=== PATIENT | male | born 1950 | race Caucasian/White ===

== ENCOUNTER → 2016-09-12 | Outpatient (CLI) | payer MEDICARE, BC ==
[~2016-09-12] VITALS: Ht 167.6 cm; Wt 104.3 kg
[~2016-09-12] MED LIST: ASPI81TA85 PO; ATOR1TAB18 PO; LISI-542 PO; NS 1,000 ML IV SCH; PROPOFOL 200 MG/20 ML VIAL As Ordered ONE
--- NOTE | 2016-09-12 11:48 | ROOR ---
Patient Name: Jimenez Garcia Procedure Date: 09/12/2016 11:25 AM Date of : 1950 Age: 66 Room: [facility] Gender: Male Note Status: Finalized Procedure: Colonoscopy to Cecum Indications: Screening for colorectal malignant neoplasm, Last colonoscopy: 2005 Providers: Maycol Jaramillo MD Referring MD: Sky Mosqueda MD Requesting Provider: Medicines: Monitored Anesthesia Care Complications: No immediate complications. Procedure: Pre-Anesthesia Assessment: - The heart rate, respiratory rate, oxygen saturations, blood pressure, adequacy of pulmonary ventilation, and response to care were monitored throughout the procedure. The Colonoscope was introduced through the anus and advanced to the cecum, identified by appendiceal orifice and ileocecal valve. The colonoscopy was performed without difficulty. The patient tolerated the procedure well. The quality of the bowel preparation was excellent. Findings: The perianal and digital rectal examinations were normal. Non-bleeding internal hemorrhoids were found during retroflexion. The hemorrhoids were small and Grade I (internal hemorrhoids that do not prolapse). No other significant abnormalities were identified in a careful examination of the remainder of the colon. The exam was otherwise without abnormality on direct and retroflexion views. Impression: - Non-bleeding internal hemorrhoids. - The examination was otherwise normal on direct and retroflexion views. - No specimens collected. - The exam was otherwise normal to the cecum. Recommendation: - Patient has a contact number available for emergencies. The signs and symptoms of potential delayed complications were discussed with the patient. Return to normal activities tomorrow. Written discharge instructions were provided to the patient. - High fiber diet. - Discharge patient to home. - Continue present medications. - Repeat colonoscopy in 10 years for screening purposes. - Return to referring physician. - The findings and recommendations were discussed with the patient's family. Maycol Jaramillo MD Maycol Jaramillo MD 09/12/2016 11:48:24 AM This report has been signed electronically. Number of Addenda: 0 Note Initiated On: 09/12/2016 11:25 AM Estimated Blood Loss: Estimated blood loss: none.
[2016-09-12 12:15] VITALS: BP 118/57
== END | disposition home or self-care (01) ==
LOC: M OPP 10:03
PROVIDERS: ATTEND Internal Medicine Gastroenterology
DX: Z12.11 Encounter for screening for malignant neoplasm of colon (principal); K64.0 First degree hemorrhoids; E78.5 Hyperlipidemia, unspecified; I10 Essential (primary) hypertension; I25.10 Atherosclerotic heart disease of native coronary artery without angina pectoris; I25.2 Old myocardial infarction; R07.89 Other chest pain; Z95.5 Presence of coronary angioplasty implant and graft; Z79.82 Long term (current) use of aspirin; Z79.899 Other long term (current) drug therapy; Z87.891 Personal history of nicotine dependence
CPT/HCPCS: 99156; 99157; G0121

== ENCOUNTER → 2016-11-16 | Outpatient (REF) | payer MEDICARE, BC ==
[~2016-11-16] MED LIST changes: -NS 1,000 ML IV SCH; -PROPOFOL 200 MG/20 ML VIAL As Ordered ONE
[2016-11-16 13:34] LABS: ALBUMIN 4.2 GM/DL (3.2-5.2); ALKALINE PHOSPHATASE 132 U/L (45-117); ALT/SGPT 31 U/L (12-78); ANION GAP 6 MEQ/L (8-16); AST/SGOT 19 U/L (15-37); BILIRUBIN,TOTAL 0.5 MG/DL (0.2-1.0); BLOOD UREA NITROGEN 19 MG/DL (7-18); CALCIUM LEVEL 8.8 MG/DL (8.8-10.2); CARBON DIOXIDE LEVEL 28 MEQ/L (21-32); CHLORIDE LEVEL 105 MEQ/L (98-107); CHOLESTEROL LEVEL 140 MG/DL (<200); CREATININE FOR GFR 0.92 MG/DL (0.70-1.30); GLOMERULAR FILTRATION RATE > 60.0 (>49); GLUCOSE, FASTING 105 MG/DL (80-110); POTASSIUM SERUM 4.1 MEQ/L (3.5-5.1); SODIUM LEVEL 139 MEQ/L (136-145); TRIGLYCERIDES LEVEL 75 MG/DL (<150)
== END ==
LOC: M SFHCCLAY 08:04
PROVIDERS: ATTEND Family Medicine
DX: I25.10 Atherosclerotic heart disease of native coronary artery without angina pectoris (principal); E78.2 Mixed hyperlipidemia; Z12.5 Encounter for screening for malignant neoplasm of prostate
CPT/HCPCS: 80053; 80061; G0103

== ENCOUNTER → 2017-02-20 | Outpatient (REF) | payer MEDICARE, BC ==
[~2017-02-20] MED LIST changes: -ATOR1TAB18 PO; +ATOR80TA59 PO
[2017-02-20 12:41] LABS: BASO % 0.5 % (0.0-1.0); EOS # 0.3 10^3/uL (0.0-0.50); EOS % 4.2 % (0.0-3.0); IMMATURE GRANULOCYTE % 0.2 % (0-0); LYMPH # 2.1 10^3/uL (1.5-4.5); LYMPH % 32.6 % (24.0-44.0); MEAN CORPUSCULAR HEMOGLOBIN 30.8 pg (27.0-33.0); MEAN CORPUSCULAR HGB CONC 33.1 g/dl (32.0-36.5); MONO # 0.5 10^3/uL (0.0-0.8); NEUTROPHILS # 3.5 10^3/uL (1.8-7.7); NEUTROPHILS % 54.5 % (36.0-66.0); PLATELET COUNT, AUTOMATED 341 10^3/uL (150-450); RED CELL DISTRIBUTION WIDTH 12.8 % (11.5-14.5); WHITE BLOOD COUNT 6.5 10^3/uL (4.0-10.0)
[2017-02-20 13:15] LABS: ALBUMIN 3.8 GM/DL (3.2-5.2); PERCENT SATURATION 35.8 % (19.7-50.0)
== END ==
LOC: M LABDRAWC 11:26
PROVIDERS: ATTEND Orthopaedic Surgery
DX: Z01.818 Encounter for other preprocedural examination (principal); M16.12 Unilateral primary osteoarthritis, left hip; D63.8 Anemia in other chronic diseases classified elsewhere

== ENCOUNTER → 2017-02-26 | Outpatient (CLI) | payer MEDICARE, BC ==
--- NOTE | 2017-02-26 08:19 | REP ---
CT of the chest without IV contrast for lung nodules: Comparison is the chest CT dated 04/09/2015. Following lung nodules are identified on the study today: Image 59, right lower lobe, 7 mm, not significantly changed. Image 63, right lower lobe, 7 mm, not significantly changed. Image 63, left lower lobe, 6 mm, not significantly changed. Image 67, right lower lobe, 6 mm, not significantly changed. Image 67, left lower lobe, 6 mm, not significantly changed. The ascending thoracic aorta is dilated measuring 4.6 x 4.6 cm This measured 4.6 cm previously. In the absence of IV contrast the study is insensitive for dissection. There are no acute infiltrates or effusions. There is no mediastinal adenopathy. There is no axillary adenopathy. The study is insensitive for hilar adenopathy in the absence of IV contrast. Cardiac size is normal. There is no pericardial effusion. The visualized upper abdominal contents are unremarkable. Impression: Multiple lung nodules as enumerated in the body of the report. None of these nodules are significantly changed from the comparison study of 04/09/2015. Dilatation of the ascending thoracic aorta is again identified, not significantly changed. Signed by Richi Mulelr MD 02/26/2017 08:11 A
== END ==
LOC: M RAD 07:21
PROVIDERS: ATTEND Internal Medicine Cardiovascular Disease
DX: R91.1 Solitary pulmonary nodule (principal)

== ENCOUNTER → 2017-05-23 | Outpatient (REF) | payer MEDICARE, BC ==
[2017-05-23 11:53] LABS: ALBUMIN/GLOBULIN RATIO 1.33 (1.00-1.93); ALKALINE PHOSPHATASE 134 U/L (45-117); ALT/SGPT 30 U/L (12-78); ANION GAP 7 MEQ/L (8-16); AST/SGOT 19 U/L (7-37); BILIRUBIN,TOTAL 0.5 MG/DL (0.2-1.0); BLOOD UREA NITROGEN 19 MG/DL (7-18); CARBON DIOXIDE LEVEL 28 MEQ/L (21-32); CHLORIDE LEVEL 106 MEQ/L (98-107); CREATININE FOR GFR 0.82 MG/DL (0.70-1.30); GLOMERULAR FILTRATION RATE > 60.0 (>49); GLUCOSE, FASTING 112 MG/DL (80-110); POTASSIUM SERUM 4.3 MEQ/L (3.5-5.1); SODIUM LEVEL 141 MEQ/L (136-145)
== END ==
LOC: M SFHCCLAY 07:46
PROVIDERS: ATTEND Family Medicine
DX: I25.10 Atherosclerotic heart disease of native coronary artery without angina pectoris (principal); E78.2 Mixed hyperlipidemia

== ENCOUNTER → 2017-11-20 | Outpatient (REF) | payer MEDICARE, BC ==
[2017-11-20 12:36] LABS: ESTIMATED AVERAGE GLUCOSE 117 MG/DL (60-110); HEMOGLOBIN A1c 5.7 %
[2017-11-20 12:51] LABS: ALBUMIN/GLOBULIN RATIO 1.33 (1.00-1.93); ALKALINE PHOSPHATASE 130 U/L (45-117); ALT/SGPT 37 U/L (12-78); ANION GAP 9 MEQ/L (8-16); AST/SGOT 20 U/L (7-37); BILIRUBIN,TOTAL 0.6 MG/DL (0.2-1.0); BLOOD UREA NITROGEN 18 MG/DL (7-18); CALCIUM LEVEL 8.8 MG/DL (8.8-10.2); CARBON DIOXIDE LEVEL 27 MEQ/L (21-32); CHLORIDE LEVEL 107 MEQ/L (98-107); CHOLESTEROL LEVEL 140 MG/DL (<200); CHOLESTEROL RISK RATIO 2.592 (<5); CREATININE FOR GFR 0.83 MG/DL (0.70-1.30); GLOMERULAR FILTRATION RATE > 60.0 (>49); GLUCOSE, FASTING 99 MG/DL (70-100); HDL CHOLESTEROL 54 MG/DL (>40); LDL CHOLESTEROL 63.2 MG/DL (<100); NON-HDL-C 86 MG/DL; POTASSIUM SERUM 4.9 MEQ/L (3.5-5.1); SODIUM LEVEL 143 MEQ/L (136-145); TRIGLYCERIDES LEVEL 114 MG/DL (<150)
== END ==
LOC: M SFHCCLAY 08:39
DX: Z00.00 Encounter for general adult medical examination without abnormal findings (principal); I25.10 Atherosclerotic heart disease of native coronary artery without angina pectoris; E78.2 Mixed hyperlipidemia; R73.01 Impaired fasting glucose; Z12.5 Encounter for screening for malignant neoplasm of prostate; Z23 Encounter for immunization
CPT/HCPCS: 80053

== ENCOUNTER → 2018-05-23 | Outpatient (REF) | payer MEDICARE, BC ==
[2018-05-23 19:33] LABS: BLOOD UREA NITROGEN 22 MG/DL (7-18); CALCIUM LEVEL 8.8 MG/DL (8.8-10.2); CARBON DIOXIDE LEVEL 27 MEQ/L (21-32); CHLORIDE LEVEL 106 MEQ/L (98-107); CREATININE FOR GFR 0.85 MG/DL (0.70-1.30); GLOMERULAR FILTRATION RATE > 60.0 (>49); GLUCOSE, FASTING 107 MG/DL (70-100); POTASSIUM SERUM 4.3 MEQ/L (3.5-5.1); PROSTATIC SPECIFIC AG MONITOR 1.62 NG/ML (< 4.00); SODIUM LEVEL 141 MEQ/L (136-145)
== END ==
LOC: M SFHCCLAY 08:35
PROVIDERS: ATTEND Family Medicine
DX: R73.01 Impaired fasting glucose (principal); Z80.42 Family history of malignant neoplasm of prostate; R97.20 Elevated prostate specific antigen [PSA]
CPT/HCPCS: 80048; 84153; G0463

== ENCOUNTER → 2018-11-13 | Outpatient (REF) | payer MEDICARE, BC ==
[2018-11-13 13:35] LABS: ALBUMIN 3.6 GM/DL (3.2-5.2); ALT/SGPT 37 U/L (12-78); BILIRUBIN,TOTAL 0.4 MG/DL (0.2-1.0); BLOOD UREA NITROGEN 20 MG/DL (7-18); CALCIUM LEVEL 9.1 MG/DL (8.8-10.2); CARBON DIOXIDE LEVEL 24 MEQ/L (21-32); CHLORIDE LEVEL 109 MEQ/L (98-107); CHOLESTEROL LEVEL 117 MG/DL (<200); CHOLESTEROL RISK RATIO 2.437 (<5); CPK CREATINE PHOSPHOKINASE 127 U/L (39-308); GLOMERULAR FILTRATION RATE > 60.0 (>49); GLUCOSE, FASTING 104 MG/DL (70-100); HDL CHOLESTEROL 48 MG/DL (>40); LDL CHOLESTEROL 55 MG/DL (<100); NON-HDL-C 69 MG/DL; POTASSIUM SERUM 4.7 MEQ/L (3.5-5.1); SODIUM LEVEL 140 MEQ/L (136-145); TOTAL PROTEIN 6.8 GM/DL (6.4-8.2); TRIGLYCERIDES LEVEL 71 MG/DL (<150)
[2018-11-15 00:08] LABS: Lyme Disease IgG/IgM Antibodie <0.91 ISR (0.00-0.90); Lyme Disease IgM Ab Quantitati <0.80 index (0.00-0.79)
== END ==
LOC: M SFHCCLAY 08:53
PROVIDERS: ATTEND Family Medicine
DX: I25.10 Atherosclerotic heart disease of native coronary artery without angina pectoris (principal); M25.50 Pain in unspecified joint; Z12.5 Encounter for screening for malignant neoplasm of prostate
CPT/HCPCS: 80053; 80061; 82550; 86617; G0103

== ENCOUNTER → 2019-05-16 | Outpatient (REF) | payer MEDICARE, BC ==
[2019-05-16 11:51] LABS: BLOOD UREA NITROGEN 21 MG/DL (7-18); CALCIUM LEVEL 9.3 MG/DL (8.8-10.2); CARBON DIOXIDE LEVEL 28 MEQ/L (21-32); CHLORIDE LEVEL 106 MEQ/L (98-107); CHOLESTEROL LEVEL 146 MG/DL (<200); CHOLESTEROL RISK RATIO 2.607 (<5); CREATININE FOR GFR 0.89 MG/DL (0.70-1.30); GLOMERULAR FILTRATION RATE > 60.0 (>49); GLUCOSE, FASTING 103 MG/DL (70-100); HDL CHOLESTEROL 56 MG/DL (>40); LDL CHOLESTEROL 72 MG/DL (<100); NON-HDL-C 90 MG/DL; POTASSIUM SERUM 4.3 MEQ/L (3.5-5.1); SODIUM LEVEL 140 MEQ/L (136-145); TRIGLYCERIDES LEVEL 91 MG/DL (<150)
[2019-05-16 12:19] LABS: HEMOGLOBIN A1c 6.3 %
== END ==
LOC: M SFHCCLAY 08:21
PROVIDERS: ATTEND Family Medicine
DX: I25.10 Atherosclerotic heart disease of native coronary artery without angina pectoris (principal); E78.2 Mixed hyperlipidemia; R73.01 Impaired fasting glucose

== ENCOUNTER → 2019-11-14 | Outpatient (REF) | payer MEDICARE, BC ==
[2019-11-14 12:22] LABS: ALBUMIN 3.8 GM/DL (3.2-5.2); ALT/SGPT 36 U/L (12-78); BILIRUBIN,TOTAL 0.7 MG/DL (0.2-1.0); BLOOD UREA NITROGEN 15 MG/DL (7-18); CALCIUM LEVEL 8.9 MG/DL (8.8-10.2); CARBON DIOXIDE LEVEL 26 MEQ/L (21-32); CHLORIDE LEVEL 107 MEQ/L (98-107); CHOLESTEROL LEVEL 133 MG/DL (<200); CREATININE FOR GFR 0.84 MG/DL (0.70-1.30); GLOMERULAR FILTRATION RATE > 60.0 (>49); GLUCOSE, FASTING 101 MG/DL (70-100); HDL CHOLESTEROL 48 MG/DL (>40); LDL CHOLESTEROL 68 MG/DL (<100); NON-HDL-C 85 MG/DL; POTASSIUM SERUM 4.4 MEQ/L (3.5-5.1); SODIUM LEVEL 139 MEQ/L (136-145); TOTAL PROTEIN 6.8 GM/DL (6.4-8.2); TRIGLYCERIDES LEVEL 85 MG/DL (<150)
== END ==
LOC: M SFHCCLAY 08:26
PROVIDERS: ATTEND Family Medicine
DX: E78.2 Mixed hyperlipidemia (principal); I25.10 Atherosclerotic heart disease of native coronary artery without angina pectoris; Z12.5 Encounter for screening for malignant neoplasm of prostate
CPT/HCPCS: 80053; 80061; G0103

== ENCOUNTER → 2020-11-04 | Outpatient (CLI) | payer MEDICARE, BC ==
[~2020-11-04] MED LIST changes: -ASPI81TA85 PO; +ASPI81TA86 PO; -LISI-542 PO; +LISI-898 PO
--- NOTE | 2020-11-04 13:15 | REP ---
INDICATION: NECK PAIN. COMPARISON: PORTABLE EXAM OF 12/30/2014 TECHNIQUE: PA AND LATERAL FINDINGS: The superior mediastinal structures are midline. Heart is enlarged.. The diaphragmatic surfaces of the lungs are regular, and the costophrenic angles are clear. The pulmonary pardo are clear. The imaged osseous structures are intact. IMPRESSION: There is no acute cardiopulmonary disease. There is cardiomegaly. <Electronically signed by Chris Lind > 11/04/20 [id number]
--- NOTE | 2020-11-04 14:09 | REP ---
INDICATION: NECK PAIN. COMPARISON: None. TECHNIQUE: Full cervical spine series performed the views obtained. FINDINGS: No compression fracture or malalignment. There is no prevertebral soft tissue swelling. Moderate spurring and ligamentous calcification is seen anteriorly at C2-3. There is moderate spurring of C4 through C6 and mild spurring of C7. There is moderate disc space narrowing and subchondral sclerosis at C4-5 and C6-7, with mild narrowing at C5-6. There is diffuse narrowing, sclerosis and spurring at the posterior facet joints. IMPRESSION: Degenerative changes as discussed above. <Electronically signed by Richi Gunderson > 11/04/20 [id number]
== END ==
LOC: M CLY 10:01
PROVIDERS: ATTEND Family Medicine
DX: I51.7 Cardiomegaly (principal); M50.321 Other cervical disc degeneration at C4-C5 level; M50.322 Other cervical disc degeneration at C5-C6 level; M50.323 Other cervical disc degeneration at C6-C7 level; I25.10 Atherosclerotic heart disease of native coronary artery without angina pectoris; E78.2 Mixed hyperlipidemia; Z12.5 Encounter for screening for malignant neoplasm of prostate
CPT/HCPCS: 71046; 72050; 80053; 80061; 85027; 85652; G0463

== ENCOUNTER → 2020-11-04 | Outpatient (REF) | payer MEDICARE, BC ==
[2020-11-04 16:38] LABS: HEMATOCRIT 44.9 % (42.0-52.0); HEMOGLOBIN 14.3 g/dl (13.5-17.5); MEAN CORPUSCULAR HGB CONC 31.8 g/dl (32.0-36.5); MEAN CORPUSCULAR VOLUME 94.1 fl (80.0-96.0); PLATELET COUNT, AUTOMATED 341 10^3/uL (150-450); RED BLOOD COUNT 4.77 10^6/uL (4.30-6.10); WHITE BLOOD COUNT 6.8 10^3/uL (4.0-10.0)
[2020-11-04 17:02] LABS: ALBUMIN 4.2 GM/DL (3.2-5.2); ALT/SGPT 31 U/L (12-78); BILIRUBIN,TOTAL 0.8 MG/DL (0.2-1.0); BLOOD UREA NITROGEN 19 MG/DL (7-18); CALCIUM LEVEL 9.1 MG/DL (8.8-10.2); CARBON DIOXIDE LEVEL 27 MEQ/L (21-32); CHLORIDE LEVEL 107 MEQ/L (98-107); CHOLESTEROL LEVEL 144 MG/DL (<200); CHOLESTEROL RISK RATIO 2.526 (<5); GLOMERULAR FILTRATION RATE > 60.0 (>42); GLUCOSE, FASTING 95 MG/DL (70-100); HDL CHOLESTEROL 57 MG/DL (>40); LDL CHOLESTEROL 69 MG/DL (<100); NON-HDL-C 87 MG/DL; POTASSIUM SERUM 4.9 MEQ/L (3.5-5.1); SODIUM LEVEL 140 MEQ/L (136-145); TRIGLYCERIDES LEVEL 91 MG/DL (<150)
[2020-11-04 17:12] LABS: ERYTHROCYTE SEDIMENTATION RATE 5 mm/hr (0-20)
== END ==
LOC: M SFHCCLAY 09:37
PROVIDERS: ATTEND Family Medicine
DX: I25.10 Atherosclerotic heart disease of native coronary artery without angina pectoris (principal); E78.2 Mixed hyperlipidemia; M54.2 Cervicalgia; Z12.5 Encounter for screening for malignant neoplasm of prostate

== ENCOUNTER → 2021-05-06 | Outpatient (REF) | payer MEDICARE, BC ==
[2021-05-06 11:37] LABS: HEMATOCRIT 44.5 % (42.0-52.0); HEMOGLOBIN 14.6 g/dl (13.5-17.5); MEAN CORPUSCULAR HEMOGLOBIN 30.9 pg (27.0-33.0); MEAN CORPUSCULAR HGB CONC 32.8 g/dl (32.0-36.5); MEAN CORPUSCULAR VOLUME 94.3 fl (80.0-96.0); PLATELET COUNT, AUTOMATED 374 10^3/uL (150-450); RED BLOOD COUNT 4.72 10^6/uL (4.30-6.10); WHITE BLOOD COUNT 7.3 10^3/uL (4.0-10.0)
[2021-05-06 12:08] LABS: ALBUMIN 3.9 GM/DL (3.2-5.2); ALT/SGPT 40 U/L (12-78); BILIRUBIN,TOTAL 0.6 MG/DL (0.2-1.0); BLOOD UREA NITROGEN 23 MG/DL (7-18); CALCIUM LEVEL 9.3 MG/DL (8.8-10.2); CARBON DIOXIDE LEVEL 29 MEQ/L (21-32); CHLORIDE LEVEL 107 MEQ/L (98-107); CHOLESTEROL LEVEL 138 MG/DL (<200); CHOLESTEROL RISK RATIO 2.603 (<5); CREATININE FOR GFR 0.86 MG/DL (0.70-1.30); GLOMERULAR FILTRATION RATE > 60.0 (>42); GLUCOSE, FASTING 107 MG/DL (70-100); HDL CHOLESTEROL 53 MG/DL (>40); LDL CHOLESTEROL 69 MG/DL (<100); NON-HDL-C 85 MG/DL; POTASSIUM SERUM 4.8 MEQ/L (3.5-5.1); SODIUM LEVEL 140 MEQ/L (136-145); TOTAL PROTEIN 6.6 GM/DL (6.4-8.2); TRIGLYCERIDES LEVEL 82 MG/DL (<150)
== END ==
LOC: M SFHCCLAY 09:00
PROVIDERS: ATTEND Family Medicine
DX: I25.10 Atherosclerotic heart disease of native coronary artery without angina pectoris (principal); Z12.5 Encounter for screening for malignant neoplasm of prostate
CPT/HCPCS: 80053; 80061; 85027; G0103; G0463

== ENCOUNTER → 2022-05-09 | Outpatient (REF) | payer MEDICARE, BC ==
[~2022-05-09] MED LIST changes: -LISI-898 PO; +LISI5TAB11 PO
[2022-05-09 12:39] LABS: CHOLESTEROL RISK RATIO 3.05 (<5); HDL CHOLESTEROL 45.8 MG/DL (>40); LDL CHOLESTEROL 72.8 MG/DL (<100)
== END ==
LOC: M LABDRAWC 11:15
PROVIDERS: ATTEND Nurse Practitioner Family
DX: E78.5 Hyperlipidemia, unspecified (principal)

== ENCOUNTER → 2022-05-09 | Outpatient (REF) | payer MEDICARE, BC ==
[2022-05-09 12:40] LABS: ALBUMIN 3.7 G/DL (3.2-5.2); ALKALINE PHOSPHATASE 108 U/L (46-116); ALT/SGPT 29 U/L (7.0-40); AST/SGOT 21 U/L (<34); BILIRUBIN,TOTAL 0.7 MG/DL (0.3-1.2); BLOOD UREA NITROGEN 19 MG/DL (9-23); CALCIUM LEVEL 9.4 MG/DL (8.3-10.6); CARBON DIOXIDE LEVEL 28 MMOL/L (20-31); CHLORIDE LEVEL 107 MMOL/L (98-107); CREATININE FOR GFR 0.87 MG/DL (0.70-1.30); GLOMERULAR FILTRATION RATE > 60.0 (>42); GLUCOSE, FASTING 105 MG/DL (74-106); POTASSIUM SERUM 4.9 MMOL/L (3.5-5.1); SODIUM LEVEL 140 MMOL/L (136-145); TOTAL PROTEIN 6.5 G/DL (5.7-8.2)
[2022-05-09 12:41] LABS: HEMOGLOBIN 14.2 g/dl (13.5-17.5); MEAN CORPUSCULAR HEMOGLOBIN 30.8 pg (27.0-33.0); MEAN CORPUSCULAR HGB CONC 32.3 g/dl (32.0-36.5); MEAN CORPUSCULAR VOLUME 95.4 fl (80.0-96.0); PLATELET COUNT, AUTOMATED 347 10^3/uL (150-450); RED BLOOD COUNT 4.61 10^6/uL (4.30-6.10); WHITE BLOOD COUNT 6.9 10^3/uL (4.0-10.0)
[2022-05-09 12:42] LABS: TOTAL 25(OH) VITAMIN D 54.4 NG/ML (20.0-100.0)
[2022-05-09 14:21] LABS: HEMOGLOBIN A1c 5.5 % (4.0-6.0)
== END ==
LOC: M SFHCCLAY 07:16
PROVIDERS: ATTEND Family Medicine
DX: Z12.5 Encounter for screening for malignant neoplasm of prostate (principal); I25.10 Atherosclerotic heart disease of native coronary artery without angina pectoris; E78.2 Mixed hyperlipidemia; R73.01 Impaired fasting glucose; E55.9 Vitamin D deficiency, unspecified; E78.5 Hyperlipidemia, unspecified; Z79.899 Other long term (current) drug therapy
CPT/HCPCS: 80053; 80061; 82306; 83036; 85027; G0103

== ENCOUNTER → 2022-08-28 | Outpatient (REF) | payer MEDICARE, BC ==
[2022-08-28 15:24] LABS: CHOLESTEROL RISK RATIO 2.25 (<5); HDL CHOLESTEROL 50.1 MG/DL (>40); NON-HDL-C 62.9 MG/DL
[2022-08-28 18:42] LABS: LDL CHOLESTEROL 47.7 MG/DL (<100)
== END ==
LOC: M SFHCCLAY 07:21
PROVIDERS: ATTEND Family Medicine
DX: E78.2 Mixed hyperlipidemia (principal)

== ENCOUNTER → 2023-04-04 | Outpatient (REF) | payer MEDICARE, BC ==
[2023-04-04 14:09] LABS: BLOOD UREA NITROGEN 20 MG/DL (9-23); CALCIUM LEVEL 9.6 MG/DL (8.3-10.6); CARBON DIOXIDE LEVEL 26 MMOL/L (20-31); CHLORIDE LEVEL 107 MMOL/L (98-107); CREATININE FOR GFR 0.81 MG/DL (0.70-1.30); GLOMERULAR FILTRATION RATE > 60.0 (>42); GLUCOSE, FASTING 83 MG/DL (74-106); POTASSIUM SERUM 4.4 MMOL/L (3.5-5.1); SODIUM LEVEL 140 MMOL/L (136-145)
== END ==
LOC: M LABDRAWC 12:43
PROVIDERS: ATTEND Nurse Practitioner Family
DX: I10 Essential (primary) hypertension (principal)

== ENCOUNTER → 2023-04-12 | Outpatient (CLI) | payer MEDICARE, BC ==
[~2023-04-12] MED LIST changes: +ISOVUE-370 76% 100ML VIAL As Ordered ONE
== END ==
LOC: M RAD 14:18
PROVIDERS: ATTEND Nurse Practitioner Family
DX: I71.21 Aneurysm of the ascending aorta, without rupture (principal)
CPT/HCPCS: 71275; Q9967

== ENCOUNTER → 2023-11-22 | Outpatient (REF) | payer MEDICARE, BC ==
[~2023-11-22] MED LIST changes: -ISOVUE-370 76% 100ML VIAL As Ordered ONE
[2023-11-22 12:05] LABS: ALBUMIN 3.9 G/DL (3.2-5.2); ALKALINE PHOSPHATASE 118 U/L (46-116); ALT/SGPT 38 U/L (7.0-40); AST/SGOT 20 U/L (<34); BILIRUBIN,TOTAL 0.8 MG/DL (0.3-1.2); BLOOD UREA NITROGEN 21 MG/DL (9-23); CALCIUM LEVEL 9.2 MG/DL (8.3-10.6); CARBON DIOXIDE LEVEL 28 MMOL/L (20-31); CHLORIDE LEVEL 109 MMOL/L (98-107); CHOLESTEROL LEVEL 112 MG/DL (<200); CHOLESTEROL RISK RATIO 2.18 (<5); CREATININE FOR GFR 0.83 MG/DL (0.70-1.30); GLOMERULAR FILTRATION RATE > 60.0 (>42); GLUCOSE, FASTING 111 MG/DL (74-106); HDL CHOLESTEROL 51.2 MG/DL (>40); LDL CHOLESTEROL 45.2 MG/DL (<100); NON-HDL-C 60.8 MG/DL; POTASSIUM SERUM 4.2 MMOL/L (3.5-5.1); SODIUM LEVEL 140 MMOL/L (136-145); TOTAL PROTEIN 6.3 G/DL (5.7-8.2); TRIGLYCERIDES LEVEL 78 MG/DL (<150)
[2023-11-22 12:34] LABS: HEMOGLOBIN A1c 5.7 % (4.0-6.0)
== END ==
LOC: M SFHCCLAY 07:20
PROVIDERS: ATTEND Family Medicine
DX: I25.10 Atherosclerotic heart disease of native coronary artery without angina pectoris (principal); E78.2 Mixed hyperlipidemia; Z79.899 Other long term (current) drug therapy

== ENCOUNTER → 2024-05-16 | Outpatient (REF) | payer MEDICARE, BC ==
[2024-05-16 12:41] LABS: ALBUMIN 3.8 G/DL (3.2-5.2); ALKALINE PHOSPHATASE 113 U/L (40-129); ALT/SGPT 35 U/L (7.0-40); AST/SGOT 22 U/L (<34); BILIRUBIN,TOTAL 0.9 MG/DL (0.3-1.2); BLOOD UREA NITROGEN 21 MG/DL (9-23); CALCIUM LEVEL 9.7 MG/DL (8.3-10.6); CARBON DIOXIDE LEVEL 28 MMOL/L (20-31); CHLORIDE LEVEL 105 MMOL/L (98-107); CHOLESTEROL LEVEL 120 MG/DL (<200); CHOLESTEROL RISK RATIO 2.58 (<5); CREATININE FOR GFR 0.88 MG/DL (0.70-1.30); GLOMERULAR FILTRATION RATE > 60.0 (>42); GLUCOSE, FASTING 108 MG/DL (74-106); HDL CHOLESTEROL 46.4 MG/DL (>40); LDL CHOLESTEROL 57.4 MG/DL (<100); NON-HDL-C 73.6 MG/DL; POTASSIUM SERUM 4.7 MMOL/L (3.5-5.1); PROSTATIC SPECIFIC AG MONITOR 1.22 NG/ML (< 4.00); SODIUM LEVEL 140 MMOL/L (136-145); TOTAL PROTEIN 6.8 G/DL (5.7-8.2); TRIGLYCERIDES LEVEL 81 MG/DL (<150)
[2024-05-16 12:43] LABS: HEMOGLOBIN A1c 5.9 % (4.0-6.0)
== END ==
LOC: M SFHCCLAY 07:42
PROVIDERS: ATTEND Physician Assistant
DX: R97.20 Elevated prostate specific antigen [PSA] (principal); Z80.42 Family history of malignant neoplasm of prostate; I25.10 Atherosclerotic heart disease of native coronary artery without angina pectoris; E78.2 Mixed hyperlipidemia; R73.01 Impaired fasting glucose

== ENCOUNTER → 2025-05-07 | Outpatient (REF) | payer MEDICARE, BC ==
[2025-05-07 13:05] LABS: PSA SCREENING 1.29 NG/ML (< 4.00)
[2025-05-07 13:07] LABS: ALT/SGPT 30.0 U/L (7.0-40); AST/SGOT 25.0 U/L (<34); CALCIUM LEVEL 8.8 MG/DL (8.3-10.6); CARBON DIOXIDE LEVEL 25.0 MMOL/L (20-31); CHLORIDE LEVEL 109.0 MMOL/L (98-107); CHOLESTEROL LEVEL 116.0 MG/DL (<200); CHOLESTEROL RISK RATIO 2.34 (<5); CREATININE FOR GFR 0.91 MG/DL (0.70-1.30); GLOMERULAR FILTRATION RATE 88.4 (>42); LDL CHOLESTEROL 54.0 MG/DL (<100); NON-HDL-C 66.6 MG/DL; POTASSIUM SERUM 4.5 MMOL/L (3.5-5.1); SODIUM LEVEL 141.0 MMOL/L (136-145); TRIGLYCERIDES LEVEL 63.0 MG/DL (<150)
[2025-05-07 13:25] LABS: ESTIMATED AVERAGE GLUCOSE 120.0 MG/DL (60-110)
== END ==
LOC: M SFHCCLAY 07:03
PROVIDERS: ATTEND Physician Assistant
DX: R91.1 Solitary pulmonary nodule (principal); I25.10 Atherosclerotic heart disease of native coronary artery without angina pectoris; I77.810 Thoracic aortic ectasia; R73.01 Impaired fasting glucose; E78.2 Mixed hyperlipidemia; Z80.42 Family history of malignant neoplasm of prostate; R97.20 Elevated prostate specific antigen [PSA]; Z12.5 Encounter for screening for malignant neoplasm of prostate
CPT/HCPCS: 80053; 80061; 83036; G0103